=== PATIENT | male | born 1995 | race Two or more races ===

== ENCOUNTER 2019-07-30 11:02 | Emergency (ER) | payer SELFPAY ==
[~2019-07-30] VITALS: Ht 152.4 cm; Wt 72.6 kg
--- NOTE | 2019-07-30 11:05 | NUR ---
ED Nurse Note: Pt came by meng Massey from the streets. Pt has taken meth and has hep c. Pt is currently a&ox2, having hallucinations, and is restless and rambling unintelligable words. Pt is set up to monitor. TIM has seen patient.
[2019-07-30 11:08] VITALS: BP 127/77
[2019-07-30] MEDS ORDERED: Haloperidol 5mg/ml Inj IM ONE (11:30)
[2019-07-30] MEDS ORDERED: LORazepam Inj 2mg/ml 1ml IV ONE (11:30)
--- NOTE | 2019-07-30 11:45 | NUR ---
ED Nurse Note: blood sample sent to lab. pt unable to provide urine at this time.
[2019-07-30 12:05] LABS: BASOPHILS % (AUTO) 0.6 % (0.0-2.0); EOSINOPHILS % (AUTO) 0.2 % (0.0-3.0); LYMPHOCYTES % (AUTO) 6.9 % (20.0-45.0); MEAN CORPUSCULAR VOLUME 83 FL (80-99); MONOCYTES % (AUTO) 12.7 % (1.0-10.0); NEUTROPHILS % (AUTO) 79.6 % (45.0-75.0); PLATELET COUNT 291 K/UL (150-450); RED BLOOD COUNT 4.11 M/UL (4.70-6.10); RED CELL DISTRIBUTION WIDTH 12.7 % (11.6-14.8); WHITE BLOOD COUNT 14.2 K/UL (4.8-10.8)
[2019-07-30 12:20] LABS: ANION GAP 15 mmol/L (5-15); BLOOD UREA NITROGEN 23 mg/dL (7-18); CALCIUM 9.4 MG/DL (8.5-10.1); CARBON DIOXIDE 24 MMOL/L (21-32); CHLORIDE 101 MMOL/L (98-107); CREATININE 1.1 MG/DL (0.55-1.30); POTASSIUM 3.9 MMOL/L (3.5-5.1); SODIUM 140 MMOL/L (136-145)
--- NOTE | 2019-07-30 12:50 | Emergency Room Report ---
History of Present Illness General Chief Complaint: Substance Abuse Source: Patient, EMS Present Illness HPI Patient presents by paramedics and extreme agitation patient writhing around the ambulance gurney He had verbalized to the paramedics taking crystal meth He is unable to provide further history at this time this does limit the history of present illness Patient is awake and makes eye contact however Thrashing around the room and yelling and screaming There was no reports of any obvious trauma at the scene Allergies: Coded Allergies: No Known Allergies (Unverified , 07/30/19) COVID-19 Screening Contact w/high risk pt: No Recent Travel to affected area: No Experienced COVID-19 symptoms?: No Patient History Limited by: medical condition Past Medical History: see triage record Reviewed Nursing Documentation: PMH: Agreed; PSxH: Agreed Review of Systems All Other Systems: negative except mentioned in HPI Physical Exam Vital Signs Date Time Temp Pulse Resp B/P (MAP) Pulse Ox O2 Delivery O2 Flow Rate FiO2 07/30/19 10:58 98.2 106 20 132/80 (97) 98 Room Air 07/30/19 11:08 99 Sp02 EP Interpretation: reviewed, normal General Appearance: other - Agitated Head: normocephalic, atraumatic Eyes: bilateral eye PERRL, bilateral eye EOMI ENT: EOM grossly intact, normal pharynx Neck: supple Respiratory: lungs clear, no respiratory distress, no retraction Cardiovascular #1: regular rate, rhythm Gastrointestinal: non tender, soft Musculoskeletal: normal inspection Neurologic: responsive - Awake and alert makes eye contact, has deliberate movement towards staff Psychiatric: other - Agitated Skin: no rash - However appears disheveled Lymphatic: no adenopathy Procedures Critical Care Time Critical Care Time 40 minutes for initial presentation multiple re-evaluations extreme agitated state requiring repeat neurological exams concern for acute decompensation not including any procedural time Medical Decision Making Diagnostic Impression: Primary Impression: Substance abuse ER Course Multiple differentials including but not limited to metabolic, infectious, drug- induced psychosis entertained Patient had extensive blood work initiated IV hydration Urine sample does reveal multi drug substance abuse Patient continues to rest well after initial chemical sedation After awakening he is requesting food awake alert GCS 15 Denies any homicidal or suicidal thoughts And patient was further medically cleared for disposition Labs Test 07/30/19 11:42 07/30/19 12:55 White Blood Count 14.2 K/UL (4.8-10.8) Red Blood Count 4.11 M/UL (4.70-6.10) Hemoglobin 12.0 G/DL (14.2-18.0) Hematocrit 34.0 % (42.0-52.0) Mean Corpuscular Volume 83 FL (80-99) Mean Corpuscular Hemoglobin 29.1 PG (27.0-31.0) Mean Corpuscular Hemoglobin Concent 35.2 G/DL (32.0-36.0) Red Cell Distribution Width 12.7 % (11.6-14.8) Platelet Count 291 K/UL (150-450) Mean Platelet Volume 5.1 FL (6.5-10.1) Neutrophils (%) (Auto) 79.6 % (45.0-75.0) Lymphocytes (%) (Auto) 6.9 % (20.0-45.0) Monocytes (%) (Auto) 12.7 % (1.0-10.0) Eosinophils (%) (Auto) 0.2 % (0.0-3.0) Basophils (%) (Auto) 0.6 % (0.0-2.0) Sodium Level 140 MMOL/L (136-145) Potassium Level 3.9 MMOL/L (3.5-5.1) Chloride Level 101 MMOL/L (98-107) Carbon Dioxide Level 24 MMOL/L (21-32) Anion Gap 15 mmol/L (5-15) Blood Urea Nitrogen 23 mg/dL (7-18) Creatinine 1.1 MG/DL (0.55-1.30) Estimat Glomerular Filtration Rate > 60 mL/min (>60) Glucose Level 65 MG/DL (74-106) Calcium Level 9.4 MG/DL (8.5-10.1) Serum Alcohol < 3 mg/dL Urine Opiates Screen Negative (NEGATIVE) Urine Barbiturates Screen Negative (NEGATIVE) Phencyclidine (PCP) Screen Negative (NEGATIVE) Urine Amphetamines Screen Positive (NEGATIVE) Urine Benzodiazepines Screen Positive (NEGATIVE) Urine Cocaine Screen Negative (NEGATIVE) Urine Marijuana (THC) Screen Positive (NEGATIVE) Rhythm Strip Diag. Results EP Interpretation: yes Rate: 77 Rhythm: NSR, no PVC's, no ectopy Last Vital Signs Date Time Temp Pulse Resp B/P (MAP) Pulse Ox O2 Delivery O2 Flow Rate FiO2 5/4/20 11:08 110 17 Room Air 99 07/30/19 11:08 98.2 127/77 100 Status: improved Disposition: HOME, SELF-CARE Condition: Improved Referrals: NOT CHOSEN IPA/MD,REFERRING (PCP) Additional Instructions: Patient is provided with the discharge instructions notified to follow up with primary doctor in the next 2-3 days otherwise return to the er with any worsening symptoms. Please note that this report is being documented using [employer] technology. This can lead to erroneous entry secondary to incorrect interpretation by the dictating instrument. Gordon Patel DO July 30, 2019 12:50
[2019-07-30 13:24] VITALS: BP 123/71
--- NOTE | 2019-07-30 14:00 | NUR ---
ED Nurse Note: Pt awake, still rambling and incoherent. Pt fell back asleep 10 minutes later.
[2019-07-30 16:53] VITALS: BP 121/75
--- NOTE | 2019-07-30 17:42 | NUR ---
Note [email or web address] in ED - 07/30/19 at 1743 by TORY ER DISCHARGE NOTE: Patient is cleared to be discharged per ERMD, pt is aox4, on room air, with stable vital signs. pt was given dc and prescription instructions, pt was able to verbalize understanding, pt id band and iv site removed without complications. pt is able to ambulate with steady gait. pt took all belongings. Homeless log and mini cog completed. Patient given food and clothes and resources.
[2019-07-30 17:55] VITALS: BP 125/72
--- NOTE | 2019-07-30 17:55 | NUR ---
ER DISCHARGE NOTE: Patient is cleared to be discharged per ERMD, pt is aox4, on room air, with stable vital signs. pt was given dc and prescription instructions, pt was able to verbalize understanding, pt id band and iv site removed without complications. pt is able to ambulate with steady gait. pt took all belongings. Homeless log and mini cog completed. Patient given food and clothes and resources.
== END 2019-07-30 17:58 | disposition home or self-care (01) ==
LOC: EDBD 11:02 → EMR 11:14
DX: F19.10 Other psychoactive substance abuse, uncomplicated (principal); R45.1 Restlessness and agitation
CPT/HCPCS: 36415; 80048; 80307; 85025; 96361; 96372; 96374; 96375; 99291; G0480; J1630; J2250; J7030